=== PATIENT | female | born 1975 | race Caucasian/White ===

== ENCOUNTER 2018-05-27 15:14 | Emergency (ER) | payer BC ==
--- OUTSIDE RECORDS SUMMARY | 2018-05-27 15:34 | XMS REPORT ---
:1975 External Reference #:[id number] Author Organization [facility] Address [address] [place] [address] Phone [phone] Care Team Providers Name Role Phone Rica Barlow M.D. 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 Smoking Nonsmoker Allergies, Adverse Reactions, Alerts Date Description Reaction Status Severity Comments 01/17/2014 NKDA active Medications Medication Date Status Form Strength Qnty SIG Indications Ordering Provider Mirena (52 MG) 02/08/ Active IUD 20mcg/24HR Unknown 2016 Cheratussin ac 10/16/ Hx Syrup 100-10mg/5 120ml 5-10ml Gracia Kimberley 2017 - ML every 4 Cr, 02/20/ hours as STAIN REMOVER 2018 needed for cough [place] 08/25/ Hx Capsules 300mg 90caps one tablet F33.1 Gracia Kimberley Carbonate 2017 - three Cr, 05/08/ times a STAIN REMOVER 2018 day Microgestin 08/04/ Hx Tablets 1-20mg-mcg 1 daily as Unknown 11/29 2017 - directed 2017 Cheratussin ac 02/07/ Hx Syrup 100-10mg/5 118ml 2 teaspoon R05 Jessica 2017 - ML every 4 Reji, 16/ hours as 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 2017 x 1 week Prednisone 10/08/ Hx Tablets 50mg 5tabs 1 tab by Margarita Strauss 2015 - mouth [place], 02/06/ every day M.D. 2017 5 days Fluconazole 10/08/ Hx Tablets 150mg 1tabs 1 tab by Margarita Strauss 2015 - mouth x 1 [place], 02/06/ M.D. 2016 Azithromycin 09/28/ Hx Tablets 250mg 12tabs take 2 J06.9 Esther 2015 - tablets by Mónica, 10/08/ mouth x 3d RETAIL MARKETING MANAGER 2015 then take 1 tablet daily for next 6 days Cheratussin ac 09/28/ Hx Syrup 100-10mg/5 118ml 2 teaspoon J06.9 Esther 2016 - ML every 4 Mónica, 10/08/ hours as RETAIL MARKETING MANAGER 2016 needed No Active Hx Unknown Medications 2015 - 2015 Cheratussin ac 07/20/ Hx Syrup 100-10mg/5 118ml 2 teaspoon J06.9 Dottie Madrigal 2015 - ML every 4 Michael, 09/28/ hours as M.D. 2015 needed Azithromycin 07/20/ Hx Tablets 250mg 6tabs 2 by mouth J01.80 Dottie Madrigal 2016 - today. 1 Michael, 09/28/ by mouth M.D. 2015 daily x 4 Ventolin HFA 07/20/ Hx Aerosol 108(90Base 16gm 2 puffs J01.80 Dottie Madrigal 2016 - ) mcg/Act every 4 Michael, 08/25/ hours as M.D. 2016 needed Cheratussin ac 12/12/ Hx Syrup 100-10mg/5 118ml 2 teaspoon J06.9 Esther 2016 - ML every 4 Mónica, 04/05/ hours as RETAIL MARKETING MANAGER 2016 needed Ipratropium 12/12/ Hx Solution 0.5-2.5(3) 90ml use bid- J06.9 Esther [place]/Albuter 2016 - mg/3ML three Mónica, ol Sulfate 04/05/ times a RETAIL MARKETING MANAGER 2015 day in nebulizer as needed Levothyroxine 08/29/ Hx Tablets 25mcg 30tabs 1 by mouth Esther Sodium 2014 - every day Mónica, 12/12/ RETAIL MARKETING MANAGER 2015 No Active 07/06/ Hx Unknown Medications 2014 - 2014 No Active 06/29/ Hx Unknown Medications 2014 - 2014 Cheratussin ac 06/29/ Hx Syrup 100-10mg/5 118ml 2 teaspoon 786.2 Saba 2015 - ML every 4 Brown, STAIN REMOVER 07/06/ hours as 2014 needed Azithromycin 10/08/ Hx Tablets 250mg 12tabs take 2 461.9 Esther 2013 - tablets by Mónica, 06/29/ mouth x 3d RETAIL MARKETING MANAGER 2014 then take 1 tablet daily for next 6 days Cheratussin ac 10/08/ Hx Syrup 100-10mg/5 4oz 1-2 461.9 Esther 2013 - ML teaspoon Mónica, 06/29/ by mouth RETAIL MARKETING MANAGER 2014 every night at bedtime as needed cough No Active Hx Unknown Medications 2013 - 2013 Vital Signs Date Vital Result Comment 05/08/2018 BP Systolic 120 mmHg BP Diastolic 80 mmHg Heart Rate 80 /min Body Temperature 98.3 F Height 63.5 inches 5'3.50" Weight 180.00 lb BMI (Body Mass Index) 31.4 kg/m2 02/20/2018 BP Systolic 100 mmHg BP Diastolic 64 mmHg Heart Rate 82 /min Body Temperature 98.7 F Respiratory Rate 18 /min Height 63.5 inches 5'3.50" Weight 189.38 lb BMI (Body Mass Index) 33.0 kg/m2 08/25/2017 BP Systolic 120 mmHg BP Diastolic 80 mmHg Heart Rate 66 /min Body Temperature 99.3 F Respiratory Rate 16 /min Height 63.5 inches 5'3.50" Weight 176.25 lb BMI (Body Mass Index) 30.7 kg/m2 02/07/2017 BP Systolic 112 mmHg BP Diastolic 72 mmHg Heart Rate 96 /min Body Temperature 98.1 F Height 63.5 inches 5'3.50" Weight 167.38 lb BMI (Body Mass Index) 29.2 kg/m2 10/08/2016 BP Systolic 132 mmHg BP Diastolic 82 mmHg Heart Rate 92 /min Body Temperature 97.9 F Height 63.5 inches 5'3.50" 09/28/2016 BP Systolic 120 mmHg BP Diastolic 80 mmHg Heart Rate 72 /min Body Temperature 97.9 F Height 63.5 inches 5'3.50" Weight 180.00 lb BMI (Body Mass Index) 31.4 kg/m2 07/20/2016 BP Systolic 128 mmHg BP Diastolic 74 mmHg Heart Rate 82 /min Body Temperature 98.6 F Respiratory Rate 18 /min O2 % BldC Oximetry 99 % Height 63.5 inches 5'3.50" Weight 175.12 lb BMI (Body Mass Index) 30.5 kg/m2 04/05/2016 BP Systolic 110 mmHg BP Diastolic 68 mmHg Heart Rate 72 /min Body Temperature 97.9 F Respiratory Rate 16 /min Height 63.5 inches 5'3.50" Weight 171.00 lb BMI (Body Mass Index) 29.8 kg/m2 12/12/2015 BP Systolic 122 mmHg BP Diastolic 82 mmHg Heart Rate 100 /min Body Temperature 98.6 F Height 63.5 inches 5'3.50" Weight 167.00 lb BMI (Body Mass Index) 29.1 kg/m2 08/24/2015 BP Systolic 110 mmHg BP Diastolic 70 mmHg Heart Rate 68 /min Body Temperature 98.5 F Respiratory Rate 18 /min Height 63.5 inches 5'3.50" Weight 154.00 lb BMI (Body Mass Index) 26.8 kg/m2 06/29/2015 BP Systolic 112 mmHg BP Diastolic 70 mmHg Heart Rate 54 /min Body Temperature 97.9 F Respiratory Rate 18 /min O2 % BldC Oximetry 100 % Height 63.5 inches 5'3.50" Weight 157.00 lb BMI (Body Mass Index) 27.4 kg/m2 10/08/2014 BP Systolic 112 mmHg BP Diastolic 68 mmHg Heart Rate 80 /min Body Temperature 99.2 F Respiratory Rate 16 /min Height 63.5 inches 5'3.50" Weight 169.38 lb BMI (Body Mass Index) 29.5 kg/m2 04/15/2014 BP Systolic 104 mmHg BP Diastolic 68 mmHg Heart Rate 84 /min Body Temperature 97.4 F Height 63.5 inches 5'3.50" Weight 166.50 lb BMI (Body Mass Index) 29.0 kg/m2 01/17/2014 BP Systolic 110 mmHg BP Diastolic 64 mmHg Heart Rate 60 /min Body Temperature 97.1 F Respiratory Rate 16 /min Height 63.5 inches 5'3.50" Weight 170.00 lb BMI (Body Mass Index) 29.6 kg/m2 Results Test Date Test Result H/L Range Note Laboratory test finding 05/08/2018 TSH <pending> 0.5-5.0 Free T4 <pending> 0.75-1.54 Measles/Mumps/Rubella 05/08/2018 Rubeola Ab, 54.8 AU/mL Immune >29.9 1, 2 Immunity IgG Mumps Abs, IgG 85.4 AU/mL Immune >10.9 1, 3 Rubella Antibodies, IgG 2.32 index Immune >0.99 1, 4 Laboratory test finding 02/17/2018 TSH 6.59 mIU/L High 0.50-6.00 5 Free T4 0.91 ng/dL 0.75-1.54 Laboratory test finding 02/17/2018 [place] (Eskalith(R)), 0.6 mmol/L 0.6- 1.2 6, 7 Serum Comprehensive Metabolic 02/04/2018 Sodium 138 mEq/L 134-149 Prof Potassium 4.1 mEq/L 3.6-5.5 Chloride 99 mEq/L 94-112 Carbon Dioxide 28 mEq/L 21-32 Glucose 89 mg/dL 70-105 BUN 14 mg/dL 6-26 Creatinine 0.9 mg/dL 0.6-1.4 BUN/Creat Ratio 15.6 CALC 8.0-36.0 Calcium 9.7 mg/dL 8.6-10.2 Total Protein 7.4 g/dL 6.4-8.3 Albumin 4.6 g/dL 3.8-5.5 Globulin 2.8 g/dL 2.0-4.8 A/G Ratio 1.6 CALC 0.6-2.3 Alk. Phosphatase 55 U/L 30-110 Alt (SGPT) 13 U/L 7-35 Ast (Sgot) 20 U/L 5-34 Total Bilirubin 0.6 mg/dL 0.2-1.3 GFR Non- >60 ml/min/1.73m^ >=60 GFR >60 ml/min/1.73m^ >=60 Laboratory test finding 02/04/2018 Free T4 0.82 ng/dL 0.75-1.54 CBC Electronic Fma 02/04/2018 WBC 7.5 x10^3/UL 4.0-10.0 RBC 4.03 x10^6/UL 3.93-6.00 HGB 12.5 g/dL 12.0-17.0 HCT 37 % 35-50 MCV 92.1 fL 80.0-95.0 MCH 31.0 pg 25.6-32.2 MCHC 33.7 g/dL 32.2-36.0 RDW-CV 12.8 % 11.6-14.4 PLT 237 x10^3/UL 163-400 MPV 10.2 fL 9.4-12.4 [place]# 4.83 x10^3/UL 1.56-6.13 Lymph# 1.85 x10^3/UL 1.18-3.74 Luce# 0.46 x10^3/UL 0.24-0.82 Eos # 0.3 x10^3/UL 0.0-0.5 Baso # 0.04 x10^3/UL 0.01-0.08 [place]% 64.9 % 34.0-70.0 Lymph % 24.8 % 20.0-52.0 Luce% 6.2 % 5.0-12.0 Eos% 3.5 % 0.7-7.0 Baso% 0.5 % 0.1-1.2 Laboratory test finding 02/04/2018 TSH 9.28 mIU/L High 0.50-6.00 8 Laboratory test finding 02/04/2018 [place] 0.7 mmol/L 0.6-1.2 9, 10 (Eskalith(R)), Serum Laboratory test finding 09/11/2017 T4,Free(Direct) 0.84 ng/dL 0.82-1.77 11 [place] (Eskalith(R)), Serum 0.6 mmol/L 0.6-1.2 11, 12 Metabolic Panel (14), Comprehensive 08/29/2017 Glucose, Serum 99 mg/dL 65 -99 13 BUN 13 mg/dL 6-24 13 Creatinine, Serum 0.88 mg/dL 0.57-1.00 13 eGFR If NonAfricn Am 82 mL/min/1.73 >59 13 eGFR If Africn Am 94 mL/min/1.73 >59 13 BUN/Creatinine Ratio 15 9-23 13 Sodium, Serum 141 mmol/L 134-144 13 Potassium, Serum 3.9 mmol/L 3.5-5.2 13 Chloride, Serum 105 mmol/L 96-106 13 Carbon Dioxide, Total 25 mmol/L 18-29 13 Calcium, Serum 8.7 mg/dL 8.7-10.2 13 Protein, Total, Serum 7.0 g/dL 6.0-8.5 13 Albumin, Serum 4.4 g/dL 3.5-5.5 13 Globulin, Total 2.6 g/dL 1.5-4.5 13 A/G Ratio 1.7 1.2-2.2 13 Bilirubin, Total 0.4 mg/dL 0.0-1.2 13 Alkaline Phosphatase, S 41 IU/L 39-117 13 Ast (Sgot) 21 IU/L 0-40 13 Alt (SGPT) 13 IU/L 0-32 13 CBC With Differential/Platelet 08/29/2017 WBC 4.9 x10E3/uL 3.4-10.8 13 RBC 3.79 x10E6/uL 3.77-5.28 13 Hemoglobin 11.6 g/dL 11.1-15.9 13 Hematocrit 34.7 % 34.0-46.6 13 MCV 92 fL 79-97 13 MCH 30.6 pg 26.6-33.0 13 MCHC 33.4 g/dL 31.5-35.7 13 RDW 13.8 % 12.3-15.4 13 Platelets 226 x10E3/uL 150-379 13 Neutrophils 57 % Not Estab. 13 Lymphs 33 % Not Estab. 13 Monocytes 7 % Not Estab. 13 Eos 3 % Not Estab. 13 Basos 0 % Not Estab. 13 Immature Cells TNP 13 Neutrophils (Absolute) 2.7 x10E3/uL 1.4-7.0 13 Lymphs (Absolute) 1.6 x10E3/uL 0.7-3.1 13 Monocytes(Absolute) 0.3 x10E3/uL 0.1-0.9 13 Eos (Absolute) 0.2 x10E3/uL 0.0-0.4 13 Baso (Absolute) 0.0 x10E3/uL 0.0-0.2 13 Immature Granulocytes 0 % Not Estab. 13 Immature Grans (Abs) 0.0 x10E3/uL 0.0-0.1 13 NRBC TNP 13 Hematology Comments: [facility] 13 Laboratory test finding 08/29/2017 TSH 4.820 uIU/mL High 0.450-4.500 13 [place] (Eskalith(R)), Serum 0.4 mmol/L Low 0.6-1.2 13, 14 Thyroxine (T4) Free, Direct, S 0.99 ng/dL 0.82-1.77 13 Written Authorization See Comment: 13, 15 Influenza A&B-fma 02/07/2017 Influenza A pos Influenza B neg Comp. Metabolic Panel (14) 04/05/2016 Glucose, Serum 82 mg/dL 65-99 13 BUN 10 mg/dL 6-24 13 Creatinine, Serum 0.90 mg/dL 0.57-1.00 13 eGFR If NonAfricn Am 80 mL/min/1.73 >59 13 eGFR If Africn Am 92 mL/min/1.73 >59 13 BUN/Creatinine Ratio 11 9-23 13 Sodium, Serum 141 mmol/L 134-144 13 Potassium, Serum 4.5 mmol/L 3.5-5.2 13 Chloride, Serum 104 mmol/L 97-108 13 Carbon Dioxide, Total 21 mmol/L 18-29 13 Calcium, Serum 9.1 mg/dL 8.7-10.2 13 Protein, Total, Serum 7.5 g/dL 6.0-8.5 13 Albumin, Serum 4.9 g/dL 3.5-5.5 13 Globulin, Total 2.6 g/dL 1.5-4.5 13 A/G Ratio 1.9 1.1-2.5 13 Bilirubin, Total 0.5 mg/dL 0.0-1.2 13 Alkaline Phosphatase, S 58 IU/L 39-117 13 Ast (Sgot) 20 IU/L 0-40 13 Alt (SGPT) 12 IU/L 0-32 13 Lipid Panel 04/05/2016 Cholesterol, Total 116 mg/dL 100-199 13 Triglycerides 43 mg/dL 0-149 13 HDL Cholesterol 62 mg/dL >39 13, 16 VLDL Cholesterol [place] 9 mg/dL 5-40 13 LDL Cholesterol Calc 45 mg/dL 0-99 13 Comment: [facility] 13 Laboratory test finding 04/05/2016 TSH 5.910 uIU/mL High 0.450-4.500 13 Thyroxine (T4) Free, Direct, S 1.01 ng/dL 0.82-1.77 13 Laboratory test finding 08/24/2015 Thyroxine (T4) Free, 1.10 ng/dL 0.82- 1.77 17 Direct, S TSH 5.210 uIU/mL High 0.450-4.500 17 CBC With Differential/Platelet 08/24/2015 WBC 4.0 x10E3/uL 3.4-10.8 17 RBC 3.81 x10E6/uL 3.77-5.28 17 Hemoglobin 11.7 g/dL 11.1-15.9 17 Hematocrit 35.4 % 34.0-46.6 17 MCV 93 fL 79-97 17 MCH 30.7 pg 26.6-33.0 17 MCHC 33.1 g/dL 31.5-35.7 17 RDW 13.6 % 12.3-15.4 17 Platelets 226 x10E3/uL 150-379 17 Neutrophils 51 % 17 Lymphs 38 % 17 Monocytes 7 % 17 Eos 3 % 17 Basos 1 % 17 Immature Cells DNR 17 Neutrophils (Absolute) 2.1 x10E3/uL 1.4-7.0 17 Lymphs (Absolute) 1.5 x10E3/uL 0.7-3.1 17 Monocytes(Absolute) 0.3 x10E3/uL 0.1-0.9 17 Eos (Absolute) 0.1 x10E3/uL 0.0-0.4 17 Baso (Absolute) 0.0 x10E3/uL 0.0-0.2 17 Immature Granulocytes 0 % 17 Immature Grans (Abs) 0.0 x10E3/uL 0.0-0.1 17 NRBC DNR 17 Hematology Comments: DNR 17 Lyme, Western Blot, Serum 08/24/2015 IgG P93 Ab. Absent 17 IgG P66 Ab. Absent 17 IgG P58 Ab. Absent 17 IgG P45 Ab. Absent 17 IgG P41 Ab. Absent 17 IgG P39 Ab. Absent 17 IgG P30 Ab. Absent 17 IgG P28 Ab. Absent 17 IgG P23 Ab. Absent 17 IgG P18 Ab. Absent 17 Lyme IgG WB Interp. Negative 17, 18 IgM P41 Ab. Absent 17 IgM P39 Ab. Absent 17 IgM P23 Ab. Absent 17 Lyme IgM WB Interp. Negative 17, 19 Laboratory test finding 08/24/2015 Vitamin B12 569 pg/mL 211-946 17 Triiodothyronine,Free,Serum 2.8 pg/mL 2.0-4.4 17 Iron And Tibc 08/24/2015 Iron Bind.Cap.(Tibc) 256 g/dL 250-450 17 Uibc 175 g/dL 150-375 17 Iron, Serum 81 g/dL 35-155 17 Iron Saturation 32 % 15-55 17 Ua - Micro (Fma) 04/15/2014 Appearance CLOUDY Color YELLOW Glucose NEG Bilirubin NEG Ketones NEG SP Grav <=1.005 Blood LARGE PH 6.0 Protein NEG Urobil 0.2 Nitrite NEG Leukocytes (Fma/CMC/Centrex) TRACE Hyaline - /Lpf Granular - /Lpf WBC (Fma,Centrex) 2-3 RBC >100 Mucus - /Lpf Epith RARE /Lpf Bacteria TRACE /Hpf Amorphous - /Lpf Crystals, Fluid (Fma/CMC/CTX) - Z#Comments - Comprehensive Metabolic 01/19/2014 Glucose 78 mg/dL 70-100 20 BUN 15 mg/dL 4-18 20 Creatinine, Serum 0.91 mg/dL 0.50-1.10 20 Sodium 139 mmol/L 136-146 20 Potassium 3.9 mmol/L 3.5-5.3 20 Chloride 108 mmol/L 98-110 20 Carbon Dioxide 28 mmol/L 20-32 20 Albumin 4.3 g/dL 3.5-4.7 20 Protein, Total 7.2 g/dL 6.4-8.3 20 Calcium 8.8 mg/dL 8.4-10.4 20 Alkaline Phosphatase 48 U/L 10-118 20 Sgot (Ast) 23 U/L 3-40 20 SGPT (Alt) 19 U/L 7-50 20 Bilirubin, Total 0.60 mg/dL 0.30-1.20 20 Lipid Panel 01/19/2014 Cholesterol, Total 108 mg/dL <200 20 Triglycerides 43 mg/dL <150 20 HDL Cholesterol 50 mg/dL 40-60 20 Chol/HDL Cholesterol 2.2 20, 21 LDL Cholesterol, Calc. 49 mg/dL 20, 22 LDL/HDL Cholesterol 1.0 20, 23 Laboratory test finding 01/19/2014 TSH (Thyrotropin) 3.780 uIU/ml 0.350- 5.500 20 T-4 Free 0.9 ng/dL 0.8-1.8 20 CBC 01/19/2014 WBC 4.1 x10E3/uL Low 4.3-10.9 20 RBC 3.85 x10E6/uL 3.80-5.30 20 Hemoglobin 11.7 g/dL Low 11.8-15.8 20 Hematocrit 35.5 % 35.0-47.0 20 MCV 92.2 fl 82.0-98.0 20 MCH 30.4 pg 27.5-33.5 20 MCHC 33.0 g/dL 32.0-36.0 20 RDW 13.6 % 11.5-14.5 20 Platelet Count 215 x10E3/uL 130-400 20 MPV 11.7 fl 8.6-12.6 20 Segmented Neutrophils 51.5 % 44.0-74.0 20 Lymphocytes 33.4 % 15.0-45.0 20 Monocytes 6.6 % 2.0-13.0 20 Eosinophils 7.8 % High 0.0-6.0 20 Basophils 0.7 % 0.0-2.0 20 Neutrophil Absolute 2.1 x10E3/uL 1.4-7.0 20 Lymphocytes Absolute 1.4 x10E3/uL 1.0-3.4 20 Monocyte Absolute 0.3 x10E3/uL 0.2-1.0 20 Eosinophil Absolute 0.3 x10E3/uL 0.0-0.5 20 Basophil Absolute 0.0 x10E3/uL 0.0-0.2 20 Egfr (Calculated) 01/19/2014 Estimated GFR (CALCULATED) 20 Egfr >60 20, 24 Egfr, -Iraqi >60 20, 25 1 1 SST 2 Negative <25.0 Equivocal 25.0 - 29.9 Positive >29.9 Presence of antibodies to Rubeola is presumptive evidence of immunity except when acute infection is suspected. 3 Negative <9.0 Equivocal 9.0 - 10.9 Positive >10.9 A positive result generally indicates past exposure to Mumps virus or previous vaccination. 4 Non-immune <0.90 Equivocal 0.90 - 0.99 Immune >0.99 5 RESULTS VERIFIED BY REPEAT ANALYSIS 6 1 sst 7 Detection Limit=0.1 <0.1 indicates None Detected 8 RESULTS VERIFIED BY REPEAT ANALYSIS 9 1 pour off tube withserum 10 Detection Limit=0.1 <0.1 indicates None Detected 11 1sst 12 Detection Limit=0.1 <0.1 indicates None Detected 13 2 sst 14 Detection Limit=0.1 <0.1 indicates None Detected 15 Written Authorization Received. Authorization received from [employer] 09-03-2017 Logged by Melissa Queen 16 According to ATP-III Guidelines, HDL-C >59 mg/dL is considered a negative risk factor for CHD. 17 3 sst 18 Positive: 5 of the following Borrelia-specific bands: 18,23,28,30,39,41,45,58, 66, and 93. Negative: No bands or banding patterns which do not meet positive criteria. 19 Note: An equivocal or positive EIA result followed by a negative Western Blot result is considered NEGATIVE. An equivocal or positive EIA result followed by a positive Western Blot is considered POSITIVE by the CDC. Positive: 2 of the following bands: 23,39 or 41 Negative: No bands or banding patterns which do not meet positive criteria. Criteria for positivity are those recommended by CDC/ASTPHLD. p23=Osp C, z61=[id number] Note: Sera from individuals with the following may cross react in the Lyme Western Blot assays: other spirochetal diseases (periodontal disease, leptospirosis, relapsing fever, yaws, and pinta); connective autoimmune (Rheumatoid Arthritis and Systemic Lupus Erythematosus and also individuals with Antinuclear Antibody); other infections ([place] Spotted Fever; Jeanine-Mehta Virus, and Cytomegalovirus). 20 FASTING; 2 sst; 1 purple top tube 21 CHOL/HDL Risk Ratio Levels MALE FEMALE 1/2 X Average 3.4 3.3 Average 5.0 4.4 2 X Average 9.5 7.0 3 X Average 24.0 11.0 22 Optimal under 100 mg/dl Near or above Optimal 100 - 129 mg/dl Borderline High 130 - 159 mg/dl High 160 - 189 mg/dl Very High above 190 mg/dl 23 LDL/HDL Risk Ratio Levels MALE FEMALE 1/2 X Average 1.0 1.5 Average 3.6 3.2 2 X Average 6.3 5.0 3 X Average 8.0 6.1 24 >59 mL/min/1.73m2 25 >59 mL/min/1.73m2 Note: Persistent reduction for 3 months or more in an eGFR <60 mL/min/1.73m2 defines CKD. Patients with eGFR values >=60 mL/min/1.73m2 may also have CKD if evidence of persistent proteinuria is present. Additional information may be found at www.kidney.org/professionals/kdoqi. Procedures Date CPT Code Description Status 07/08/2017 Mammogram Completed 07/20/2016 88641 Pulse Oximetry Completed 07/05/2016 Mammogram Completed 06/29/2015 49381 Pulse Oximetry Completed 06/16/2015 Mammogram Completed 05/06/2014 Mammogram Completed Encounters Type Date Location Provider CPT E/M Dx Office Visit 02/20/2018 3:45p [place] [address] F31.0 E03.9 Office Visit 08/25/2017 6:00p [place] [address] F33.1 F31.0 Office Visit 02/07/2017 11:30a [facility] DEBI Montero 08637 R05 R50.9 Office Visit 10/08/2016 4:20p Main Office Rica Barlow M.D. 15294 J01.90 Office Visit 09/28/2016 12:00p Main Office DEBI Mitchell 62208 J06.9 Office Visit 07/20/2016 11:00a Main Office Dottie Rodriguez M.D. 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 69665 V70.0 Plan of Care 05/08/2018 - Gracia Cr NPF31.0 Bipolar disorder, current episode hypomanicComments:stable off of medications - follows with [facility] and jwgekjeL23.9 Hypothyroidism, unspecifiedComments:has been off lithium for a few months - recheck thyroid wcmvlU47.84 Encounter for antibody response examinationComments:Screening MMR for school this fallAllComments:~B_~U_ Medication Management~b_~u_ Patient Understands medications she's taking? Yes No Are there Barriers to Adherence? Yes No Has the patient been asked about herbal supplements and therapies, and OTC meds? Yes No ~ B_~U_Care Plan~b_~u_1. Patient has been queried about patient's goals/ preferences and functional/lifestyle goals at relevant visits. If relevant, describe: na2. Treatment goals as explained to the patient: above3. Are there barriers to meeting treatment goals? Yes No If Yes, please describe:4. Self-Management goals as described to the patient: Yes NoFollow up:As always, we strongly encourage a healthy diet and making physical activity a part of your every day life. If you have questions about how or where to start, please contact the office.
[2018-05-27 18:35] LABS: ABS Basophils 0.1 10^3/ul (0-0.2); ABS Eosinophils 0.2 10^3/ul (0-0.6); ABS Lymphocytes 1.5 10^3/ul (1.0-4.8); ABS Monocytes 0.3 10^3/ul (0-0.8); ABS Neutrophils 2.7 10^3/ul (1.5-7.7); ABS Nucleated RBC 0 10^3/ul; Eosinophil % 3.7 % (0-6); Hematocrit 37 % (35-47); Hemoglobin 12.8 g/dl (12.0-16.0); Lymphocyte % 30.9 % (25-47); Mean Corpuscular HGB Conc 35 g/dl (31-36); Mean Corpuscular Hemoglobin 31 pg (27-31); Mean Corpuscular Volume 89 fL (80-97); Mean Platelet Volume 8.5 um3 (7.4-10.4); Nucleated Red Blood Cells % 0.1; Platelet Count 243 10^3/ul (150-450); Red Blood Count 4.14 10^6/ul (4.00-5.40); Red Cell Distribution Width 13 % (10.5-15); White Blood Count 4.7 10^3/ul (3.5-10.8)
[2018-05-27 18:52] LABS: EGFR Non-African American 61.5 (>60)
--- NOTE | 2018-05-27 21:40 | ED ---
GI/ HPI - HPI Summary HPI Summary: 43-year-old female presents with right lower quadrant pain for the past 8 hours. She states it is located in one area on her abdomen. She denies any pelvic pain. She denies any nausea vomiting. She denies any diarrhea or constipation. No pain with urination. No abnormal vaginal discharge. She has an IUD. never had this pain before. No previous belly surgeries. No flank pain. He has a history of renal cysts. - History of Current Complaint Chief Complaint: EDFlankPain Time Seen by Provider: 05/27/18 20:24 Stated Complaint: RT ABD PAIN Hx Last Menstrual Period: IUD Pain Intensity: 2 - Allergy/Home Medications Allergies/Adverse Reactions: Allergies Allergy/AdvReac Type Severity Reaction Status Date / Time No Known Allergies Allergy Verified 03/10/13 17:51 PMH/Surg Hx/FS Hx/Imm Hx Endocrine/Hematology History: Denies: Hx Anticoagulant Therapy Respiratory History: Reports: Hx Asthma - Cancer History Hx Chemotherapy: No Hx Radiation Therapy: No - Surgical History Surgery Procedure, Year, and Place: BENIGN LUMP REMOVED FROM LEFT LEG Infectious Disease History: No Infectious Disease History: Denies: Traveled Outside the [place] in Last 30 Days - Family History Known Family History: Positive: Other - no GI history - Social History Alcohol Use: None Substance Use Type: Reports: None Smoking Status (MU): Never Smoked Tobacco Review of Systems Negative: Fever Negative: Chest Pain Negative: Shortness Of Breath Positive: Abdominal Pain. Negative: Vomiting, Diarrhea, Nausea All Other Systems Reviewed And Are Negative: Yes Physical Exam Triage Information Reviewed: Yes Vital Signs On Initial Exam: Initial Vitals Temp Pulse Resp BP Pulse Ox 98.3 F 78 16 144/97 99 05/27/18 15:17 05/27/18 15:17 05/27/18 15:17 05/27/18 15:17 05/27/18 15:17 Vital Signs Reviewed: Yes Appearance: Positive: Well-Appearing Skin: Positive: Warm, Dry Head/Face: Positive: Normal Head/Face Inspection Eyes: Positive: Normal, Conjunctiva Clear ENT: Positive: Pharynx normal Respiratory/Lung Sounds: Positive: Clear to Auscultation, Breath Sounds Present Cardiovascular: Positive: Normal, RRR Abdomen Description: Positive: Soft, Other: - tenderness RLQ, neg rovsings,. Negative: CVA Tenderness (R), CVA Tenderness (L), McBurney's Point Tenderness Bowel Sounds: Positive: Present Musculoskeletal: Positive: Normal Neurological: Positive: Normal Psychiatric: Positive: Normal Diagnostics - Vital Signs Vital Signs Temp Pulse Resp BP Pulse Ox 05/27/18 20:26 58 122/83 100 05/27/18 20:25 80 100 05/27/18 19:10 100.3 F 73 16 128/82 100 05/27/18 17:21 98.1 F 82 16 118/72 05/27/18 15:17 98.3 F 78 16 144/97 99 - Laboratory Lab Results: Lab Results 05/27/18 05/27/18 Range/Units 18:15 18:15 WBC 4.7 (3.5-10.8) 10^3/ul RBC 4.14 (4.00-5.40) 10^6/ul Hgb 12.8 (12.0-16.0) g/dl Hct 37 (35-47) % MCV 89 (80-97) fL MCH 31 (27-31) pg MCHC 35 (31-36) g/dl RDW 13 (10.5-15) % Plt Count 243 (150-450) 10^3/ul MPV 8.5 (7.4-10.4) um3 Neut % (Auto) 57.3 (38-83) % Lymph % (Auto) 30.9 (25-47) % [place] % (Auto) 6.9 (0-7) % Eos % (Auto) 3.7 (0-6) % Baso % (Auto) 1.2 (0-2) % Absolute Neuts (auto) 2.7 (1.5-7.7) 10^3/ul Absolute Lymphs (auto) 1.5 (1.0-4.8) 10^3/ul Absolute Monos (auto) 0.3 (0-0.8) 10^3/ul Absolute Eos (auto) 0.2 (0-0.6) 10^3/ul Absolute Basos (auto) 0.1 (0-0.2) 10^3/ul Absolute Nucleated RBC 0 10^3/ul Nucleated RBC % 0.1 Sodium 140 (135-145) mmol/L Potassium 3.7 (3.5-5.0) mmol/L Chloride 107 (101-111) mmol/L Carbon Dioxide 26 (22-32) mmol/L Anion Gap 7 (2-11) mmol/L BUN 12 (6-24) mg/dL Creatinine 0.99 H (0.51-0.95) mg/dL Est GFR ( Amer) 74.4 (>60) Est GFR (Non-Af Amer) 61.5 (>60) BUN/Creatinine Ratio 12.1 (8-20) Glucose 86 (70-100) mg/dL Calcium 9.3 (8.6-10.3) mg/dL Total Bilirubin 0.40 (0.2-1.0) mg/dL AST 15 (13-39) U/L ALT 8 (7-52) U/L Alkaline Phosphatase 53 (34-104) U/L C-Reactive Protein < 1.00 (<8.01) mg/L Total Protein 7.3 (6.4-8.9) g/dL Albumin 4.5 (3.2-5.2) g/dL Globulin 2.8 (2-4) g/dL Albumin/Globulin Ratio 1.6 (1-3) Lipase 27 (11.0-82.0) U/L Beta HCG, Quant < 0.60 mIU/mL Result Diagrams: 05/27/18 23:23 05/27/18 18:15 Lab Statement: Any lab studies that have been ordered have been reviewed, and results considered in the medical decision making process. - Ultrasound No standard instances Ultrasound Interpretation: No Acute Changes Ultrasound Interpretation Completed By: Radiologist ASYA Course/Dx - Course Course Of Treatment: 43-year-old female presents with right lower quadrant pain for the past 8 hours. She states it is located in one area on her abdomen. She denies any pelvic pain. She denies any nausea vomiting. She denies any diarrhea or constipation. No pain with urination. No abnormal vaginal discharge. She has an IUD. never had this pain before. No previous belly surgeries. No flank pain. He has a history of renal cysts. On exam has nontender CVA. Tenderness RLQ quadrant but not mcmurphy's point. crp normal. Repeat wbc 5 hours later as patient was here that long and is still normal. Transvaginal ultrasound was negative. Explained that do not have reason for pain but will not get a CT at this point and patient agrees. Told to follow up with primary. Told to to return to ED if pain becomes severe or develop fever. patient understand and agrees with plan. - Diagnoses Differential Diagnoses - Female: Appendicitis, Ovarian Cyst, Urinary Tract Infection Provider Diagnoses: Abdominal pain Discharge - Sign-Out/Discharge Documenting (check all that apply): Patient Departure - Discharge Plan Condition: Good Disposition: HOME Patient Education Materials: Acute Abdominal Pain (ED) Referrals: Rica Barlow MD [Primary Care Provider] - Additional Instructions: Drink small amounts of fluid as tolerated When able to eat follow BRAT diet: Bananas, rice, applesauce, toast Take ibuprofen or Tylenol for pain as needed every 6 hours Follow up with primary within 5 days Return to ED if develop any new or worsening symptoms - Billing Disposition and Condition Condition: GOOD Disposition: Home
[2018-05-27 23:30] LABS: Hematocrit 35 % (35-47); Hemoglobin 12.3 g/dl (12.0-16.0); Mean Corpuscular HGB Conc 35 g/dl (31-36); Mean Corpuscular Hemoglobin 31 pg (27-31); Mean Corpuscular Volume 89 fL (80-97); Mean Platelet Volume 8.7 um3 (7.4-10.4); Platelet Count 237 10^3/ul (150-450); Red Blood Count 3.95 10^6/ul (4.00-5.40); Red Cell Distribution Width 13 % (10.5-15); White Blood Count 5.5 10^3/ul (3.5-10.8)
[2018-05-27 23:34] LABS: Urine Appearance Clear; Urine Blood 1+ (Negative); Urine Color Straw; Urine Ketones Negative (Negative); Urine Protein Negative (Negative); Urine Red Blood Cell Trace(0-2/hpf) (Absent); Urine Specific Gravity 1.004 (1.010-1.030); Urine Urobilinogen Negative (Negative); Urine White Blood Cell Absent (Absent)
[2018-05-27 23:52] VITALS: BP 118/86
--- NOTE | 2018-05-28 08:41 | RAD ---
INDICATION: Pelvic pain COMPARISON: None TECHNIQUE: Longitudinal and transverse transvaginal scans of the pelvis were obtained. FINDINGS: Uterus: The uterus is normal in size. There are no focal masses. The uterus measures 8.8 x 3.8 x 5.6 cm. Endometrial thickness: The endometrial thickness is measured at 0.4 cm. There is an IUD in expected position.. Free fluid: There is no significant free fluid . Ovaries: The ovaries are normal in size. The right ovary measures 3.5 x 1.6 x 1.8 cm. The left ovary measures 2.5 x 1.1 x 1.7 cm. . Doppler interrogation demonstrates flow to each ovary. Other: None IMPRESSION: NORMAL STUDY. IUD IN EXPECTED POSITION.
== END 2018-05-27 23:57 | disposition home or self-care (01) ==
LOC: ED 15:14
DX: R10.31 Right lower quadrant pain (principal); Z87.448 Personal history of other diseases of urinary system; Z97.5 Presence of (intrauterine) contraceptive device
CPT/HCPCS: 36415; 76856; 80053; 81003; 81015; 83690; 84702; 85025; 85027; 86140; 99283